=== PATIENT | male | born 2000 | race Caucasian/White ===

== ENCOUNTER 2019-06-09 18:22 | Emergency (ER) | payer MEDICAID, SELFPAY ==
[2019-06-09 18:48] VITALS: BP 134/76; PULSE 72; RESP 18; TEMP 37; O2SAT 99
--- NOTE | 2019-06-09 19:24 | ED.LOWEXIN ---
HPI - Extremity Injury (Lower) General Chief Complaint: Extremity Injury, Lower Stated Complaint: Maier Pain Time Seen by Provider: 06/09/19 19:11 Source: patient and RN notes reviewed Mode of arrival: ambulatory Limitations: no limitations History of Present Illness HPI Narrative: Patient presents today complaining of right groin pain and left anterior lower leg pain x2 weeks. Denies known injury. Patient does play basketball frequently. Denies any pain at rest. Reports pain is only present when he is running or walking. Currently rates the pain 5/10 with walking, and 10/10 with running. He has tried no interventions at home for pain prior to arrival. MD complaint: thigh injury and leg injury Related Data Home Medications Medication Instructions Recorded Confirmed No Home Medications 06/09/19 06/09/19 Allergies Allergy/AdvReac Type Severity Reaction Status Date / Time No Known Allergies Allergy Verified 06/09/19 19:17 Review of Systems Review of Systems: Narrative: CONSTITUTIONAL: Denies body aches, fever, chills, or sweats. EYES: Denies visual changes, redness, or discharge. ENT: Denies rhinorrhea, congestion, sore throat, or otalgia. CARDIOVASCULAR: Denies chest pain, palpitations, or edema. RESPIRATORY: Denies cough or dyspnea. GASTROINTESTINAL: Denies abdominal pain, nausea, vomiting, or diarrhea. GENITOURINARY: Denies dysuria or hematuria. Denies penile pain. Denies scrotal or testiclular pain or swelling. SKIN: Denies rash, itching, or wounds. MUSCULOSKELETAL: Denies back pain. + Right groin pain, left lower leg pain NEUROLOGIC: Denies headache, numbness, tingling, or weakness. PSYCH: Denies depression or anxiety. PMFSH Social History Social History Gender identity (if verbalized by the patient): Male Comments At time of signature, I have reviewed and agree with nursing past medical, surgical, social and family history unless otherwise noted. Please see nursing chart for further information. There is no relevant family history pertinent to the presenting complaint Exam Narrative: Exam Narrative: GENERAL: Well-appearing, well-nourished, and in no acute distress. HEAD: Normocephalic, atraumatic. EYES: EOMI. No redness or drainage. ENT: Mucous membranes pink and moist. NECK: Normal AROM. CHEST: No respiratory distress. ABDOMEN: Soft, nontender, nondistended, normal active bowel sounds. MUSCULOSKELETAL: No bony tenderness. EXTREMITIES: Localizes pain to the anterior medial right groin. This area is nontender with palpation without edema. Movement of the hip does not elicit increased pain. There is no inguinal lymphadenopathy. Distal sensation intact. Capillary refill normal. Full AROM. Tenderness to the left maier without edema, ecchymosis, erythema. No tenderness to the calf. Distal sensation intact. Capillary refill normal. Full AROM of the leg. SKIN: Warm, dry, no rash. NEURO: No focal deficits. Alert and oriented x3. Gait steady. PSYCH: Normal affect. No signs of depression or anxiety. Course Vital Signs Vital signs: Vital Signs Temperature 98.6 F 06/09/19 18:48 Pulse Rate 72 06/09/19 18:48 Respiratory Rate 18 06/09/19 18:48 Blood Pressure 134/76 06/09/19 18:48 Pulse Oximetry 99 06/09/19 18:48 Temperature 98.6 F 06/09/19 18:48 Pulse Rate 72 06/09/19 18:48 Respiratory Rate 18 06/09/19 18:48 Blood Pressure 134/76 06/09/19 18:48 Pulse Oximetry 99 06/09/19 18:48 Reviewed. Pt has been instructed to follow up with his PCP regarding his elevated blood pressure today. MDM - Extremity Injury (Lower) Differential Diagnosis Differential diagnosis: Likely other (Groin strain, inguinal lymphadenopathy, maier splints, contusion) Critical Care Time Critical Care Time Critical Care Time: No Discharge Plan Discharge Clinical Impression: Strain of muscle of right groin region, Maier splint of left lower extremity Patient Disposition: H
== END 2019-06-09 19:30 | disposition home or self-care (01) ==
PROVIDERS: Emergency Provider Nurse Practitioner
DX: S86.892A Other injury of other muscle(s) and tendon(s) at lower leg level, left leg, initial encounter (principal); S39.011A Strain of muscle, fascia and tendon of abdomen, initial encounter; X58.XXXA Exposure to other specified factors, initial encounter
CPT/HCPCS: 99202; G0463